=== PATIENT | male | born 1945 | race Caucasian/White ===

== ENCOUNTER 2020-02-27 09:01 | Outpatient (CLI) | payer MEDICARE, SELFPAY ==
--- NOTE | 2020-02-27 09:14 | XR_ITS ---
WS: [id number] Right hip, AP and frog-leg views, 02/27/2020 Clinical Data: PAIN IN R HIP Comparison: Right hip, 07/29/2019. Findings: No fractures or dislocations are seen. The hip joint is intact. The soft tissues are not remarkable. The adjacent pelvis is normal. The adjacent right SI joint and the pubic symphysis are normal. XR/XR hip RT 2-3V wo/w pel* [id number] Impression: Negative right hip.
== END 2020-02-27 09:02 | disposition home or self-care (01) ==
LOC: RAD 09:09
PROVIDERS: PCP Family Medicine; Visit Provider Family Medicine
DX: M25.551 Pain in right hip (principal)
CPT/HCPCS: 73502

== ENCOUNTER 2020-12-28 09:31 | Outpatient (CLI) | payer MEDICARE, SELFPAY ==
[2020-12-28 09:49] VITALS: BMI 25.8
--- NOTE | 2020-12-28 09:53 | NMCV_ITS ---
NM becca perf SPECT r/s* [id number] Truong Rios Age: 75 Gender: M : 1945 Exam Date: 12/28/2020 10:12 Ordering Phys: Nishi Wilburn MD Technologist: JONATHAN Matias Exam Location: [facility] Indications: CHEST PAIN STRESS TEST Please see separate stress test report in [facility] for full findings IMAGE PROTOCOL Rest/Stress 1 Exercise Day Radiopharmaceutical Dose (mCi) Administration Site Administered by Rest: Tc-99m 10.8 IV JONATHAN Matisa Sestamibi Stress:Tc-99m 32.7 IV JONATHAN Gordon Sestamibi Rest: 28-Dec-2020 60 Discovery 630 Stress: 28-Dec-2020 30 Discovery 630 Radiopharmaceutical was injected at 85 % maximum heart rate. Images obtained in supine and prone position. SPECT RESULTS Technical Quality: Excellent Raw Data Analysis: Normal Image Corrections: No attenuation or motion correction applied Summed Stress Score: 0 Summed Rest Score: 0 Summed Difference Score: 0 PERFUSION FINDINGS Small sized perfusion abnormality of mild severity of mid to apical inferior and apical lateral gibson on rest images with somewhat improved tracer uptake in stress images. This is likely suggestive of attenuation artifact. FUNCTIONAL RESULTS (calculated via Gated SPECT) Stress Image LV EF (%): 69 Stress EDV (mL):109 TID: 1.02 Stress ESV (mL):34 FUNCTIONAL FINDINGS: The left ventricle is normal in size. Transient Ischemia Dilatation of 1. There is normal left ventricular systolic function. The left ventricular ejection fraction is normal with a value of 69%. There is normal left ventricular wall thickening with no regional wall motion abnormality. Normal end diastolic and end systolic volumes. IMPRESSIONS 1. Small sized perfusion abnormality of mild severity of mid to apical inferior and apical lateral gibson with somewhat improved tracer uptake in stress images. This is likely suggestive of attenuation artifact. 2. Overall left ventricular systolic function is normal without regional wall motion abnormalities. 3. The left ventricular ejection fraction is normal with a value of 69%. 4. No significant coronary ischemia based on this study. 5. EKG portion of the study will be reported separately. Anaya Retana MD (Electronically Signed) Final Date: 30 Dec 2020 22:55 S
--- NOTE | 2020-12-28 09:53 | ECG_ITS ---
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 Interpretive Statements NAME OF STUDY: EXERCISE SESTAMIBI STRESS TEST INDICATION: Chest Pain Baseline blood pressure of 136/87 mm Hg, heart rate of 64 beats per minute and oxygen saturation of 96% . EKG showed normal sinus rhythm, indeterminate axis with poor anterior R wave progression. The patient exercised for 8 minutes and 1 second on a [standard [place] protocol]. Patient attained a maximum heart rate of 134 beats per minute( 91 % of the maximum predicted heart rate) with a blood pressure at the peak exercise of 197/85 mm Hg and oxygen saturation of 94%. The EKG at the peak exercise revealed sinus tachycardia with maxim significant ST-T wave changes. Patient did not have any chest pain or any significant arrhythmis with the exercise. During the recovery phase, there were no new changes. Blood pressure at the end of the recovery phase was 159/101 mm Hg with a heart rate of 79 beats per minute and oxygen saturation of 98%. CONCLUSION: 1. Normal EKG response to treadmill exercise. 2. No exercise-induced chest pain or cardiac arrhythmia. 3. Excellent exercise tolerance, attained a maximum of 10.2 METs. Maximum VO2 of 35.7 ml/kg/min. 4. Baseline normal blood pressure with normal response to exercise. 5. Perfusion scan will be documented separately. Electronically Signed On 12-28-2020 16:32:13 CDT by Anaya Retana M.D. [id number]
[2020-12-28 11:53] VITALS: BP 150/101; PULSE 79
== END 2020-12-28 09:32 | disposition home or self-care (01) ==
LOC: CDL 09:36
PROVIDERS: PCP Family Medicine; Visit Provider Family Medicine
DX: R07.9 Chest pain, unspecified (principal)
CPT/HCPCS: 78452; 93017; A9500

== ENCOUNTER 2021-07-30 07:07 | Outpatient (CLI) | payer MEDICARE, SELFPAY ==
--- NOTE | 2021-07-30 07:14 | USCV_ITS ---
Truong Rios Age: 75 Gender: M : 1945 Exam Date: 07/30/2021 07:27 Ordering Phys: Nishi Wilburn MD Technologist: JESENIA Exam Location: [facility] [place] Indication: AAA Screening HISTORY: AAA Screening Diameter (cm) AP x Transverse x Length Velocity (cm/s) Waveform Prox Aorta: 2.50 x 2.53 x 85.90 Biphasic Mid Aorta: 2.15 x 2.43 x 80.20 Biphasic Distal Aorta: 1.79 x 1.81 x 74.40 Triphasic Right Iliac Prox: 1.57 x 2.04 x 82.60 Triphasic Left Iliac Prox: 1.47 x 1.76 x 113.20 Triphasic Stent Prox Landing x x Aneurysmal Sac Max x x Lt Lat Sac Dim Rt Lat Sac Dim Stent Dist Landing x x Right Iliac Stent x x Left Iliac Stent x x Right Renal Art Left Renal Art FINDINGS: CONCLUSIONS No evidence of abdominal aortic or bilateral iliac aneurysm. Abhi Olivera MD (Electronically Signed) Final Date: 30 July 2021 16:27 S
== END 2021-07-30 07:08 | disposition home or self-care (01) ==
LOC: RAD 07:09
PROVIDERS: PCP Family Medicine; Visit Provider Family Medicine
DX: Z13.6 Encounter for screening for cardiovascular disorders (principal)
CPT/HCPCS: 76706

== ENCOUNTER → 2022-07-04 13:24 | Outpatient (BNVA) | payer MEDICARE, SELFPAY | PROVIDERS: PCP Family Medicine; Visit Provider Podiatrist Foot & Ankle Surgery | DX: B35.3 Tinea pedis (principal) | CPT/HCPCS: 99203 ==

== ENCOUNTER → 2022-07-30 09:12 | Outpatient (BNVA) | payer MEDICARE, SELFPAY | PROVIDERS: PCP Family Medicine; Visit Provider Podiatrist Foot & Ankle Surgery | DX: B35.3 Tinea pedis (principal) | CPT/HCPCS: 99213 ==

== ENCOUNTER → 2022-09-03 09:02 | Outpatient (BNVA) | payer MEDICARE, SELFPAY | PROVIDERS: PCP Family Medicine; Visit Provider Podiatrist Foot & Ankle Surgery | DX: B35.3 Tinea pedis (principal) | CPT/HCPCS: 99213 ==

== ENCOUNTER 2022-10-02 13:58 | Outpatient (CLI) | payer MEDICARE, SELFPAY ==
--- NOTE | 2022-10-02 | XR_ITS ---
WS: [id number] Chest 2 views, 10/02/2022 Clinical Data: ACUTE BRONCHITIS, UNSPECIFIED Comparison: Two-view chest, 12/10/2017 Findings: No nodules, masses or effusions are seen. The heart is normal. The pulmonary vascularity is not increased. No pneumonia or pneumothorax is seen. The aortic arch and descending thoracic aorta s how mild calcification and tortuosity. The diaphragms are flattened. XR/XR chest 2V* [id number] Impression: Atherosclerosis and hyperinflation.
== END 2022-10-02 13:59 | disposition home or self-care (01) ==
LOC: RAD 14:03
PROVIDERS: PCP Family Medicine; Visit Provider Family Medicine
DX: J20.9 Acute bronchitis, unspecified (principal); J45.909 Unspecified asthma, uncomplicated; I70.90 Unspecified atherosclerosis
CPT/HCPCS: 71046

== ENCOUNTER 2022-10-13 12:17 | Outpatient (CLI) | payer MEDICARE, SELFPAY ==
--- NOTE | 2022-10-13 12:26 | XR_ITS ---
WS: [id number] Left knee, 3 views, 10/13/2022 Clinical Data: PAIN IN LEFT KNEE Comparison: None. Findings: No fractures or dislocations are seen. There is minimal narrowing of the medial joint compartment wit h slight irregularity of the articular surface of the medial femoral condyle.. The patella is intact. The soft tissues are unremarkable. 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 Kellgren-Marvel Classification: grade 1 (doubtful): doubtful joint space narr owing and possible osteophytic lipping
== END 2022-10-13 12:18 | disposition home or self-care (01) ==
LOC: RAD 12:20
PROVIDERS: PCP Family Medicine; Visit Provider Family Medicine
DX: M17.12 Unilateral primary osteoarthritis, left knee (principal)
CPT/HCPCS: 73562

== ENCOUNTER 2023-05-26 06:00 | Outpatient (RCR) | payer MEDICARE, SELFPAY | END 2023-06-16 23:59 | disposition home or self-care (01) | LOC: SPT 06:00 | PROVIDERS: Visit Provider Family Medicine | DX: M62.89 Other specified disorders of muscle (principal) | CPT/HCPCS: 97110; 97140; 97161; 97530 ==

== ENCOUNTER 2023-06-17 06:00 | Outpatient (RCR) | payer MEDICARE, SELFPAY | END 2023-07-16 23:59 | disposition home or self-care (01) | LOC: SPT 06:00 | PROVIDERS: Visit Provider Family Medicine | DX: M62.89 Other specified disorders of muscle (principal) | CPT/HCPCS: 97140; 97530 ==

== ENCOUNTER 2023-07-17 06:00 | Outpatient (RCR) | payer MEDICARE, SELFPAY | END 2023-08-16 23:59 | disposition home or self-care (01) | LOC: SPT 06:00 | PROVIDERS: Visit Provider Family Medicine | DX: M62.89 Other specified disorders of muscle (principal) | CPT/HCPCS: 97110; 97140 ==

== ENCOUNTER 2023-08-17 06:00 | Outpatient (RCR) | payer MEDICARE, SELFPAY | END 2023-08-20 23:59 | disposition home or self-care (01) | LOC: SPT 06:00 | PROVIDERS: Visit Provider Family Medicine | DX: M62.89 Other specified disorders of muscle (principal) | CPT/HCPCS: 97110; 97140; 97530 ==

== ENCOUNTER 2024-05-12 13:46 | Outpatient (CLI) | payer MEDICARE, SELFPAY ==
--- NOTE | 2024-05-12 13:52 | XR_ITS ---
WS: [id number] Left shoulder, 3 views, 05/12/2024 Clinical Data: LEFT SHOULDER PAIN Comparison: Left shoulder, 11/13/2014 Findings: No fractures or dislocations are seen. The AC joint shows mild osteoarthritis unchanged. The adjacent left clavicle, left scapula and ribs are normal. The soft tissues are unremarkable. 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
== END 2024-05-12 13:47 | disposition home or self-care (01) ==
LOC: RAD 13:48
PROVIDERS: PCP Family Medicine; Visit Provider Family Medicine
DX: M25.512 Pain in left shoulder (principal)
CPT/HCPCS: 73030